=== PATIENT | male | born 1955 | race Caucasian/White ===

== ENCOUNTER 2022-06-23 11:54 | Emergency (ER) | payer OTHER ==
[~2022-06-23] VITALS: Ht 154.9 cm; Wt 61.2 kg
[2022-06-23 12:12] VITALS: BP 130/90
--- NOTE | 2022-06-23 12:22 | NUR ---
PT W/C ASSISTED TO BED 1.
--- NOTE | 2022-06-23 12:30 | NUR ---
PT RECEIVED, CARE ASSUMED. PT BIB CUSTOM DRESSMAKER FOR EVALUATION OF GEN WEAKNESS. PT IN ROOM AWAITING TO BE SEEN BY
[2022-06-23 13:19] LABS: BASOPHILS % (AUTO) 0.3 % (0.0-2.0); EOSINOPHILS % (AUTO) 0.4 % (0.0-4.0); HEMATOCRIT 39.8 % (36-52); HEMOGLOBIN 13.4 g/dL (12.0-18.0); LYMPHOCYTES # (AUTO) 0.9 K/uL (2.0-11.5); LYMPHOCYTES % (AUTO) 13.9 % (20.5-51.1); MEAN CORPUSCULAR HEMOGLOBIN 36 pg (27-31); MEAN CORPUSCULAR HGB CONC 34 g/dL (33-37); MEAN CORPUSCULAR VOLUME 107.6 fL (80-94); MONOCYTES # (AUTO) 0.7 K/uL (0.8-1.0); MONOCYTES % (AUTO) 10.9 % (1.7-9.3); NEUTROPHILS # (AUTO) 4.7 K/uL (1.8-7.7); NEUTROPHILS % (AUTO) 74.5 % (42.2-75.2); PLATELET COUNT (AUTO) 249 K/uL (140-450); RED CELL DISTRIBUTION WIDTH 13.8 % (11.6-13.7); WHITE BLOOD COUNT (AUTO) 6.3 K/uL (4.8-10.8)
[2022-06-23 13:27] LABS: APPEARANCE,URINE CLEAR (CLEAR); BILIRUBIN,URINE NEGATIVE (NEGATIVE); BLOOD, URINE NEGATIVE (NEGATIVE); COLOR,URINE YELLOW (YELLOW); LEUKOCYTE ESTERASE ,URINE NEGATIVE (NEGATIVE); NITRITE, URINE NEGATIVE (NEGATIVE); UGLUCOSE NEGATIVE (NEGATIVE)
[2022-06-23 14:24] LABS: ALBUMIN 3.1 g/dL (3.4-5.0); ANION GAP 13.9 (8-16); CREATININE 1.5 mg/dL (0.6-1.3); POTASSIUM 4.9 mmol/L (3.5-5.1); TOTAL BILIRUBIN 0.4 mg/dL (0.0-1.0)
[2022-06-23] MEDS ORDERED: DOXY50SY PO (17:03)
[2022-06-23] MEDS ORDERED: AMOX75PD60 PO (17:03)
[2022-06-23 17:51] VITALS: BP 131/71
--- NOTE | 2022-06-23 17:55 | NUR ---
Patient discharged with v/s stable. Written and verbal after care instructions given and explained. Patient alert, oriented and verbalized understanding of instructions. with steady gait. All questions addressed prior to discharge. ID band removed. Patient advised to follow up with PMD. Rx of given. Patient educated on indication of medication including possible reaction and side effects. Opportunity to ask questions provided and answered.
== END 2022-06-23 17:51 | disposition home or self-care (01) ==
LOC: MED 11:54
DX: J18.9 Pneumonia, unspecified organism (principal); Z20.822 Contact with and (suspected) exposure to COVID-19; N17.9 Acute kidney failure, unspecified; K21.9 Gastro-esophageal reflux disease without esophagitis; K29.70 Gastritis, unspecified, without bleeding
CPT/HCPCS: 36415; 71045; 74018; 80053; 81003; 85025; 87426; 99284; Q0092

== ENCOUNTER 2022-11-15 10:10 | Inpatient (IN) | payer OTHER ==
[~2022-11-15] VITALS: Ht 154.9 cm; Wt 71.7 kg
[~2022-11-15 10:10] MED LIST: AMOX75PD60 PO; DOXY50SY PO
[2022-11-15 10:20] VITALS: BP 82/49
--- NOTE | 2022-11-15 10:27 | NUR ---
1027 PT TAKEN TO BED 8 VIA WHEELCHAIR BY FAMILY
[2022-11-15] MEDS ORDERED: NACL 0.9% 1,000 ML IV ONE ×2 (10:40→12:10)
[2022-11-15] MEDS ORDERED: KETOROLAC 30 MG/ML VIAL IVP ONE (10:50)
[2022-11-15] MEDS ORDERED: cefTRIAXone 1,000 MG in DEXT 5% MINI-BAG PLUS 50 ML IV ONE (10:50)
[2022-11-15] MEDS ORDERED: NACL 0.9% 2,000 ML IV SCH (10:50)
[2022-11-15] MEDS ORDERED: cefTRIAXone 1,000 MG VIAL ONE (11:07)
[2022-11-15 11:08] LABS: BASOPHILS # (AUTO) 0.1 K/uL (0.00-0.22); BASOPHILS % (AUTO) 0.5 % (0.0-2.0); EOSINOPHILS % (AUTO) 0.2 % (0.0-4.0); HEMATOCRIT 37.2 % (36-52); HEMOGLOBIN 12.6 g/dL (12.0-18.0); LYMPHOCYTES # (AUTO) 0.6 K/uL (2.0-11.5); LYMPHOCYTES % (AUTO) 5.3 % (20.5-51.1); MEAN CORPUSCULAR HEMOGLOBIN 37 pg (27-31); MEAN CORPUSCULAR HGB CONC 34 g/dL (33-37); MEAN CORPUSCULAR VOLUME 109.6 fL (80-94); MONOCYTES # (AUTO) 0.6 K/uL (0.8-1.0); MONOCYTES % (AUTO) 5.6 % (1.7-9.3); NEUTROPHILS # (AUTO) 9.4 K/uL (1.8-7.7); NEUTROPHILS % (AUTO) 88.4 % (42.2-75.2); PLATELET COUNT (AUTO) 187 K/uL (140-450); RED BLOOD CELL COUNT(AUTO) 3.39 MIL/uL (4.20-6.10); RED CELL DISTRIBUTION WIDTH 14.1 % (11.6-13.7); WHITE BLOOD COUNT (AUTO) 10.6 K/uL (4.8-10.8)
[2022-11-15 11:21] LABS: ALBUMIN 2.4 g/dL (3.4-5.0); ANION GAP 12.5 (8-16); CARBON DIOXIDE 25.6 mmol/L (21-32); CREATININE 0.8 mg/dL (0.6-1.3); POTASSIUM 4.1 mmol/L (3.5-5.1); TOTAL BILIRUBIN 0.5 mg/dL (0.0-1.0)
--- NOTE | 2022-11-15 11:40 | NUR ---
PT BIB HAND MODEL, RASH TO LT THIGH SINCE THIS AM. NOTED HYPOTENSIVE, LIPS NOTED DRY, MUCOS MEMBRANE DRY. NO ACUTE DISTRESS.
--- NOTE | 2022-11-15 11:41 | NUR ---
2L NS INFUSING, REMAINS HYPOTENSIVE. DR HOPSON MADE AWARE.
[2022-11-15 12:15] LABS: APPEARANCE,URINE CLEAR (CLEAR); BILIRUBIN,URINE NEGATIVE (NEGATIVE); BLOOD, URINE NEGATIVE (NEGATIVE); COLOR,URINE YELLOW (YELLOW); LEUKOCYTE ESTERASE ,URINE NEGATIVE (NEGATIVE); NITRITE, URINE NEGATIVE (NEGATIVE); UGLUCOSE NEGATIVE (NEGATIVE)
[2022-11-15] MEDS ORDERED: [UNRECOGNIZED DRUG - CODE] PO (13:24)
[2022-11-15] MEDS ORDERED: SYN.1 PO (13:24)
[2022-11-15] MEDS ORDERED: OMEP20EC11 PO (13:24)
[2022-11-15] MEDS ORDERED: LORA10TA19 PO (13:24)
[2022-11-15] MEDS ORDERED: FAMO-90 PO (13:24)
[2022-11-15] MEDS ORDERED: MELO-176 PO (13:24)
[2022-11-15] MEDS ORDERED: METO10TA10 PO (13:24)
[2022-11-15] MEDS ORDERED: NACL 0.9% 500 ML IV ONE (14:25)
[2022-11-15] MEDS ORDERED: ACETAMINOPHEN 325 MG TAB PO PRN (14:45)
[2022-11-15] MEDS ORDERED: ONDANSETRON 4 MG/2 ML VIAL IM/IVP PRN (14:45)
[2022-11-15] MEDS ORDERED: HYDROcodone/APAP 7.5/325 MG 1 TAB PO PRN (14:45)
[2022-11-15] MEDS ORDERED: guaiFENesin DM 200/20 MG-10 ML 10 ML UDC PO PRN (14:45)
[2022-11-15] MEDS ORDERED: DOCUSATE SODIUM 100 MG GELCAP PO PRN (14:45)
[2022-11-15] MEDS ORDERED: POTASSIUM CHLORIDE 10 MEQ TABER PO PRN (14:45)
[2022-11-15 15:01] LABS: MAGNESIUM 1.9 mg/dL (1.8-2.4)
[2022-11-15 15:04] LABS: BARBITURATE, URINE NEGATIVE ng/ml (NEG <=200); BENZODIAZEPINE, URINE NEGATIVE ng/mL (NEG <=200); CANNABINOID, URINE NEGATIVE ng/mL (NEG <=50); COCAINE, URINE NEGATIVE ng/mL (NEG <=300); OPIATE, URINE NEGATIVE ng/mL (NEG <=2000); PHENCYCLIDINE SCREEN,URINE NEGATIVE ng/mL (NEG <=25)
--- NOTE | 2022-11-15 15:16 | NUR ---
DR ARNDT AT BEDSIDE
[2022-11-15 15:17] LABS: PROTHROMBIN TIME 10.9 secs (10.8-13.4)
[2022-11-15] MEDS ORDERED: MIDODRINE 5 MG TAB PO SCH (15:20)
[2022-11-15] MEDS ORDERED: CRUSHER, PILL MC ONE (15:24)
[2022-11-15] MEDS: NACL 0.9% 1,000 ML IV SCH (15:50)
[2022-11-15] MEDS ORDERED: VANCOMYCIN PER PHARMACY MC PRN (16:00)
[2022-11-15] MEDS ORDERED: VANCOMYCIN 1,000 MG in DEXTROSE 5% 250 ML IV SCH (17:00)
[2022-11-15] MEDS ORDERED: VANCOMYCIN 1,000 MG VIAL ONE (17:22)
--- NOTE | 2022-11-15 18:36 | NUR ---
The patient's care was reviewed and supervised by ED Agency Nurse 8, RN, RN.
--- NOTE | 2022-11-15 19:01 | NUR ---
PT TOLERATED DINNER WELL, INSTALLATION ENGINEER FEED PT.
[2022-11-15] MEDS: MIDODRINE 5 MG TAB PO SCH (19:08)
--- NOTE | 2022-11-15 19:31 | NUR ---
CAREGIVER AT BEDSIDE. PT ADMIT TO TELE
--- NOTE | 2022-11-15 19:43 | NUR ---
Patient will be admitted to care of DR ARNDT. Admited to TELE. Will go to [phone]. Belongings list completed. Report to CESAR PRABHAKAR.
[2022-11-15 20:00] VITALS: BP 103/60
--- NOTE | 2022-11-15 20:00 | NUR ---
RECEIVED REPORT FROM ER NURSE FELA FOR CONTINUITY OF CARE. PATIENT IS A&O X0-1 WITH DOWNS SYNDROME. PATIENT IS ON ROOM AIR, BREATHING IS NORMAL WITH SYMMETRICAL RISE AND FALL OF CHEST. IV IS A 20G L HAND; RUNNING NS 60. PATIENT IS AWAKE, SITTING UP IN BED. UTILITY SERVICE WORKER (MARY MOTA, ) IS AT BEDSIDE BED IS IN LOWEST POSITION, WHEELS LOCKED, CALL LIGHT IN PLACE. WILL CONTINUE TO OBSERVE PATIENT.
[2022-11-15] MEDS ORDERED: PIPERACILLIN/TAZOBACTAM 3.375 GM VIAL IV ONE (21:47)
[2022-11-15] MEDS: PIPERACILLIN/TAZOBACTAM 3.375 GM in DEXTROSE 5% 50 ML IV SCH (21:53)
[2022-11-15] MEDS: ZOLPIDEM 5 MG TAB PO PRN (23:24)
--- NOTE | 2022-11-15 23:30 | NUR ---
PATIENT WAS RESTLESS AND UNABLE TO GO TO SLEEP. CHECKED PATIENT'S VITALS AND CHART; AMBIEN WAS APPROPRIATE TO ADMINISTER. ADMINISTERED AMBIEN IN APPLESAUCE. PATIENT WAS ABLE TO SWALLOW WITHOUT ANY ISSUES WITH SWALLOWING. WILL CONTINUE TO OBSERVE PATIENT.
[2022-11-16] VITALS: BP 124/71
[2022-11-16 04:00] VITALS: BP 110/74
[2022-11-16] MEDS ORDERED: PIPERACILLIN/TAZOBACTAM 3.375 GM VIAL IV ONE (05:42)
[2022-11-16] MEDS: PIPERACILLIN/TAZOBACTAM 3.375 GM in DEXTROSE 5% 50 ML IV SCH ×3 (05:45→20:18)
[2022-11-16] MEDS: LEVOTHYROXINE 0.1 MG TAB PO SCH (05:48)
[2022-11-16 05:57] LABS: BASOPHILS % (AUTO) 0.2 % (0.0-2.0); EOSINOPHILS # (AUTO) 0.1 K/uL (0-0.4); EOSINOPHILS % (AUTO) 0.9 % (0.0-4.0); HEMATOCRIT 37.2 % (36-52); HEMOGLOBIN 12.4 g/dL (12.0-18.0); LYMPHOCYTES # (AUTO) 0.7 K/uL (2.0-11.5); MEAN CORPUSCULAR HEMOGLOBIN 37 pg (27-31); MEAN CORPUSCULAR HGB CONC 33 g/dL (33-37); MEAN CORPUSCULAR VOLUME 110.4 fL (80-94); MONOCYTES # (AUTO) 0.8 K/uL (0.8-1.0); MONOCYTES % (AUTO) 5.7 % (1.7-9.3); NEUTROPHILS # (AUTO) 12.9 K/uL (1.8-7.7); NEUTROPHILS % (AUTO) 88.2 % (42.2-75.2); PLATELET COUNT (AUTO) 161 K/uL (140-450); RED BLOOD CELL COUNT(AUTO) 3.37 MIL/uL (4.20-6.10); RED CELL DISTRIBUTION WIDTH 14.1 % (11.6-13.7); WHITE BLOOD COUNT (AUTO) 14.6 K/uL (4.8-10.8)
[2022-11-16] MEDS: MIDODRINE 5 MG TAB PO SCH ×3 (06:08→18:03)
--- NOTE | 2022-11-16 06:44 | NUR ---
PATIENT DID NOT FALL ASLEEP THROUGHOUT THE NIGHT. PATIENT CONTINUED TO STAY AWAKE, SITTING UP. PATIENT REMOVED IV FROM LEFT HAND AND KEPT PULLING ON CATHETER. NOTIFIED MD OF SITUATION AND REQUESTED RESTRAINTS. NEW IV WAS PLACED IN PATIENT IN R HAND, 22G. PATIENT DID NOT HAVE A BM THROUGHOUT THE NIGHT. DR. MORIN AUTHORIZED RESTRAINT ORDER FOR PATIENT. ORDER WAS PUT IN; PATIENT IS CURRENTLY ON RESTRAINTS. WILL CONTINUE TO OBSERVE PATIENT.
[2022-11-16] MEDS: NACL 0.9% 1,000 ML IV SCH (07:25)
--- NOTE | 2022-11-16 07:33 | NUR ---
ENDORSED TO DAY SHIFT NURSE ASHLEY FOR CONTINUITY OF CARE. PATIENT IS STABLE.
--- NOTE | 2022-11-16 07:34 | NUR ---
RECEIVED PT FROM CHIEF QUALITY OFFICER NURSE FOR CONTINUITY OF CARE. PT IS AWAKE SITTING ON BED. AOX0. RESPIRATIONS EVEN AND UNLABORED ON RA. HUGGINS IN PLACE, DRAINING TO GRAVITY. IV ON R HAND 22G INFUSING NS @ 60. ALL SAFETY PRECAUTIONS IN PLACE.
[2022-11-16 08:00] VITALS: BP 102/64
[2022-11-16] MEDS: PANTOPRAZOLE 40 MG TABEC PO SCH (08:11)
[2022-11-16 08:20] LABS: ANION GAP 19.9 (8-16); CARBON DIOXIDE 20.8 mmol/L (21-32); CREATININE 1.4 mg/dL (0.6-1.3); POTASSIUM 4.7 mmol/L (3.5-5.1)
--- NOTE | 2022-11-16 08:47 | NUR ---
PATIENT HAS BEEN SCREENED AND CATEGORIZED HIGH NUTRITION RISK. PATIENT WILL BE SEEN WITHIN 1-2 DAYS OF ADMISSION. 11/15/22-11/20/22 CONSULT REQUEST RECEIVED 11/16/22 FIR POOR PO INTAKE X 3 DAYS, PATIENT WILL BE SEEN WITHIN 1-2 DAYS OF REFERRAL REVIEWED BY LIANA GERBER RD
--- NOTE | 2022-11-16 08:57 | NUR ---
PT. WITH LOW SANTIAGO SCALE AT MODERATE TO HIGH RISK, CONTINUE TO FOLLOW PRESSURE INJURY PREVENTION INTERVENTIONS. -POSITIONING: TURN AND REPOSITION PATIENT Q 2H OR SOONER USE PILLOWS TO KEEP BONY PROMINENCES FROM DIRECT CONTACT WITH SURFACES USE REPOSITIONING WEDGES TO PROVIDE 30-DEGREE ANGLE FOR SIDE LYING POSITIONS OFFLOADING OR FOAM DRESSING TO ALL TUBING TO PREVENT MEDICAL DEVICES RELATED PRESSURE INJURY -RE-EVALUATING AND MANAGING INCONTINENCE MONITOR SKIN CONDITION DURING POSITION CHANGE DO NOT MASSAGE REDNESS, BONY PROMINENCES FREQUENT NOLA-CARE AND PROVIDE BARRIER CREAMS PRN IF SOILING MOISTURE CONTROL BY OFFER BED DYE/URINAL /ABSORBENT PAD TO WICK AND HOLD MOISTURE KEEP SKIN DRY AND PROTECT FROM FRICTION -MANAGE FRICTION/SHEAR/MOBILITY KEEP HOB AT THE LOWEST LEVEL OF ELEVATION NO MORE THAN 30 DEGREE UNLESS OTHERWISE CONTRAINDICATED USE LIFT SHEET OR TRANSFER DEVICE TO MOVE PATIENT AND PREVENT LATERAL SHEER. PROTECT HEELS, ELBOWS BONY PROMINENCES WITH SKIN BERRIES OR FOAM DRESSING IF EXPOSED TO FRICTION OFFLOAD BILATERAL HEELS BY PLACING PILLOWS UNDER CALVES AT ALL TIMES, UNLESS OTHERWISE CONTRAINDICATED -PRESSURE REDISTRIBUTION SURFACE THERAPY AMARI ISOFLEX MATTRESS -NUTRITION: PLEASE FOLLOW RD RECOMMENDATIONS AND OFFER NUTRITION SUPPLEMENTS IF ORDERED. PLEASE CONTACT WOUND CARE NURSE FOR ANY QUESTION AND CHANGE OF WOUND CONDITION.
[2022-11-16] MEDS ORDERED: VANCOMYCIN 750 MG in DEXTROSE 5% 250 ML IV SCH (11:00)
--- NOTE | 2022-11-16 11:52 | NUR ---
DC PLANN[age] YRS OLD MALE PATIENT WAS ADMITTED FROM [facility] WITH A DX OF CELLULITIS AND PNA. PATINT HAS A HX OF DOWN SYNDROME, HYPOTHYROIDISM, GASTRITIS AND HIATAL HERNIA. CXR SHOWED BIBASILAR SUBSEGMENTAL ATELECTASIS/INFILTRATE. VENOUS DOPPLER SHOWED NO DVT AND NO STENOSIS OR OCCLUSION. RAPID COVID TEST NEGATIVE. ON ROOM AIR. ADMINISTERED IVF, IV ABX ZOSYN AND VANCOMYCIN AND CONTINUED HOME MEDS. DC PLAN TO RETURN TO [facility] WHEN STABLE CM TO FOLLOW Addendum: 11/17/22 at 1140 by Kelvin Harden RN DC PLANNING: SEEN BY CARDIO DR IBANEZ , ECHO 60-65%. WBC 13.1. CONTINUED IV ABX ZOSYN AND VANCOMYCIN. DC PLAN TO GO TO [facility] WHEN STABLE. CM TO FOLLOW Addendum: 11/17/22 at 1209 by Kelvin Harden RN DC PLANNING: RECEIVED A CALL FROM GATO GANDHI SPOKE WITH MARY THE REDEYE GUNNER OF THE HOUSE STATED SHE IS GIVING PERMISSION FOR PATIENT TO GO TO ANOTHER [facility] WITH ANA CLARICE BECAUSE OF THE CARE HE NEEDS . PER MARY [facility] [place] IS ONLE LEVEL 2 AND UNABLE TO ACCEPT PATIENT. SHE PROVIDED THE NUMBER FOR ANA [phone] . MISTI ORELLANA IS THE [facility] SOIL CONSERVATIONIST. CM TO FOLLOW Addendum: 11/18/22 at 1226 by PALMER NOVOA CM CALLED SABINA GANDHI 5 TIMES WITH NO RESPONSE AND UNABLE TO LEAVE MESSAGE. WILL FOLLOW UP WHEN I GET IN CONTACT WITH ANA. Addendum: 11/18/22 at 1248 by PALMER NOVOA CM WAS ABLE TO GET A HOLD OF ANA FROM [facility] WHO SAID SHE WAS IN A MEETING AN WILL CALL US LATER. Addendum: 11/18/22 at 6366 by JOSEPH FLORES CM LATE ENTRY LAURA. THE NURSE FROM [facility] CALLED AND SAID THEY CANNOT TAKE THE PATIENT.SOMEONE TESTED POSITIVE FOR COVID SO THE BOARD AND CARE IS CLOSED FOR ADMISSION.ANA, THE REDEYE GUNNER TO CALL [facility] AND SEE IF THE PATIENT CAN GO BACK TO THAT SAME PLACE. KELVIN OUR CM TRIED CALLING [facility] BUT NO RESPONSE. Addendum: 11/19/22 at 5526 by Kelvin Harden RN DC PLANNING: SAMANTHA SPOKE WITH MARY CARDENAS THE ADMIN FOR [facility] STATED UNABLE TO TAKE PATIENT BECAUSE OF HIGH LEVEL OF CARE AND TO CONTACT 'S [facility] SOIL CONSERVATIONIST. SAMANTHA CALLED [facility] [phone] SPOKE WITH MISTI ORELLANA STATED SHE WILL CALL [facility] TO CLARIFY WHAT EXACTLY PT'S NEEDS AND WILL CALL US BACK. CM TO FOLLOW Addendum: 11/19/22 at 1606 by Kelvin Harden RN DC PLANNING: RECEIVED A CALL FROM [facility] STATED PATIENT IS UNDER OUR CUSTODY CAN NOT GO ANY WHERE UNTIL [facility] IS OUT OF [place] UNTIL NOVEMBER 25. CM CALLED [employer] CM SPOKE WITH BRENT REGARDING THE DC PLAN PER BRENT PT CAN GO TO [facility] UNTIL THE [facility] IS READY TO ACCEPT HIM. FAXED TO [facility], ANDRE SCANLON, MISAEL OGDEN AND KUNAL OGDEN. CM TO FOLLOW Addendum: 11/19/22 at 1610 by Kelvin Harden RN DC PLANNING: CALLED ETHAN NOTIFIED HER THAT MISAEL OGDEN ACCEPTED PATIENT SHE STATED TO LET HER KNOW SHE WILL TAKE PATIENT ON NOVEMBER 25 TO [facility]. CM PROVIDE THE ADDRESS AND PHONE NUMBER TO ETHAN MYERS. Addendum: 11/19/22 at 1618 by Kelvin Harden RN DC PLANNING: PATIENT GOT ACCEPTED AT [place] CAN GO TO ROOM B # TO GIVE REPORT [phone] PER BRENT TO USE THE TRANSPORT [facility] AUTH# [id number] PICK UPTIME 7PM . CM TO FOLLOW
[2022-11-16 12:00] VITALS: BP 122/64
--- NOTE | 2022-11-16 12:47 | NUR ---
DC PLANNING ASSESSMENT COMPLETE PLEASE REFER TO ASSESSMENT FOR ADDITIONAL DETAILS PT DEVELOPMENTALLY DELAYED, THEREFORE COLLAT INFO GATHERED FROM MARY MOTA ,[facility] ADMIN. MARY REPORTS PT HAS BEEN RESIDENT OF [facility] SINCE 02/23/1990. PT IS REPORTED TO BE [facility] CONNECTED, [facility] SW- MISTI ORELLANA [phone]. PT IS REPORTED TO HAVE A HALF BROTHER THAT RESIDES IN [place] HOWEVER, IS NOT INVOLVED IN PTS CARE. PTS BROTHER HOWEVER, HAS BEEN NOTIFIED OF PTS ADMISSION TO [facility]. MARY REPORTS SHE TYPICALLY PROVIDES CONSENT WHEN NEEDED HOWEVER, [facility] ALSO PARTICIPATES IN MDM. PT IS REPORTED TO BE NON VERBAL AT FACILITY. MARY REPORTS NO BX'S IN THE HOME HOWEVER, REPORTS PT IS RESISTANT TO TX WHEN IN HOSPITAL OR BEING SEEN BY A PROVIDER. MARY REPORTS PTS LEVEL OF FX HAS CHANGED WITHIN THE LAST FEW MONTHS AND A LEVEL TWO FACILITY CAN NO LONGER ACCOMMODATE HIS NEEDS, PT WILL BE MOVING TO [facility] WHERE THEY CAN PROVIDE LEVEL OF CARE REQUIRED. MARY REPORTS BEING IN TOUCH WITH JALEN LAUGHLIN ADMIN, AND IS WORKING WITH HER SO THAT PT IS DC'D FROM HOSPITAL TO NEW FACILITY. MARY REQUESTING CLINICAL UPDATE, CALL FORWARDED TO PTS NURSE. SW ENDORSED TO . Addendum: 11/16/22 at 1249 by Robin LOYD Amended: Links added. Addendum: 11/19/22 at 1312 by Robin Walter SS OUTREACHED TO MISTI ORELLANA, [facility], TO FOLLOW UP ON PTS DC PLAN. NO ANSWER BY MISTI ORELLANA , MESSAGE WAS LEFT REQUESTING A RETURN PHONE CALL. CONTACT INFO LEFT FOR BOTH [facility] MAYRA AND [facility] SAMANTHA
--- NOTE | 2022-11-16 14:22 | NUR ---
11/16/22 RD INITIAL ASSESSMENT COMPLETED PLEASE REFER TO NUTRITION ASSESSMENT UNDER CARE ACTIVITY FOR ESTIMATED NUTRITIONAL NEEDS. 1. RECOMMEND ADDING ENSURE 1/DAY TO PUREE DIET TOLERATED -PROVIDES 350 KCAL, 20 G PROTEIN DAILY 2. WHEN/IF MEDICALLY APPROPRIATE RECOMMEND MECHANICAL SOFT DIET TOLERATED. 3. MONITOR GI, PO INTAKE, AND LAB VALUES. 4. RD TO FOLLOW-UP 3-5 DAYS, MODERATE RISK REVIEWED BY LIANA GERBER RD
[2022-11-16 16:00] VITALS: BP 102/67
--- NOTE | 2022-11-16 19:11 | NUR ---
ENDORSED PT TO STRUCTURAL ENGINEER NURSE FOR CONTINUITY OF CARE. PT STABLE.
--- NOTE | 2022-11-16 19:25 | NUR ---
RECEIVED PT ASLEEP. NO S/SX OF PAIN NOR DISCOMFORT. NO ACUTE RESPIRATORY DISTRESS. IVF INFUSING WELL ORDERED. SKIN WARM AND DRY TO TOUCH. SAFETY PRECAUTIONS IN PLACE, CALL LIGHT WITHIN REACH.
[2022-11-16 19:56] VITALS: BP 120/63
[2022-11-16] MEDS: ZOLPIDEM 5 MG TAB PO PRN (22:39)
[2022-11-17] VITALS: BP 122/58
[2022-11-17] MEDS: NACL 0.9% 1,000 ML IV SCH ×3 (00:05→17:06)
--- NOTE | 2022-11-17 00:07 | NUR ---
VITAL SIGNS TAKEN AND DOCUMENTED, VS STABLE. NO S/SX OF PAIN NOR DISCOMFORT. MADE COMFORTABLE IN BED. CALL LIGHT WITHIN REACH.
[2022-11-17 04:00] VITALS: BP 99/66
--- NOTE | 2022-11-17 05:00 | NUR ---
AM CARE RENDERED. IV PUMP KEEPS ON ALARMING, UNABLE TO FLUSH IV LINE, CHANGED IV TO THE RIGHT AC GAUGE 20 X 1 ATTEMPT, PT TOLERATED WELL. PREVIOUS IV REMOVED WITH INTACT CANNULA.
[2022-11-17] MEDS: PIPERACILLIN/TAZOBACTAM 3.375 GM in DEXTROSE 5% 50 ML IV SCH ×3 (05:08→21:20)
[2022-11-17] MEDS: LEVOTHYROXINE 0.1 MG TAB PO SCH (05:32)
[2022-11-17 05:37] LABS: BASOPHILS % (AUTO) 0.2 % (0.0-2.0); EOSINOPHILS # (AUTO) 0.1 K/uL (0-0.4); EOSINOPHILS % (AUTO) 0.9 % (0.0-4.0); HEMATOCRIT 35.3 % (36-52); HEMOGLOBIN 11.7 g/dL (12.0-18.0); LYMPHOCYTES # (AUTO) 1.1 K/uL (2.0-11.5); LYMPHOCYTES % (AUTO) 8.3 % (20.5-51.1); MEAN CORPUSCULAR HEMOGLOBIN 37 pg (27-31); MEAN CORPUSCULAR HGB CONC 33 g/dL (33-37); MEAN CORPUSCULAR VOLUME 110.2 fL (80-94); MONOCYTES # (AUTO) 0.8 K/uL (0.8-1.0); MONOCYTES % (AUTO) 6.4 % (1.7-9.3); NEUTROPHILS % (AUTO) 84.2 % (42.2-75.2); PLATELET COUNT (AUTO) 172 K/uL (140-450); RED CELL DISTRIBUTION WIDTH 14.1 % (11.6-13.7); WHITE BLOOD COUNT (AUTO) 13.1 K/uL (4.8-10.8)
[2022-11-17] MEDS: MIDODRINE 5 MG TAB PO SCH ×3 (06:06→18:39)
[2022-11-17 06:15] LABS: ANION GAP 10.9 (8-16); CARBON DIOXIDE 26.6 mmol/L (21-32); CREATININE 1.3 mg/dL (0.6-1.3); POTASSIUM 4.5 mmol/L (3.5-5.1)
--- NOTE | 2022-11-17 06:21 | NUR ---
PATIENT IS AWAKE, SITTING ON THE BED. NO S/SX OF DISTRESS. ALL NEEDS ATTENDED TO. SAFETY PRECAUTIONS MAINTAINED DURING THE SHIFT, CALL LIGHT REMAINS WITHIN REACH.
--- NOTE | 2022-11-17 07:12 | NUR ---
ASSUMED CONTINUITY OF CARE. INITIAL ASSESSMENT DONE. RE-ORIENTED TO EVENTS AND SURROUNDINGS. CALM, QUIET AND COOPERATIVE. KEEP ENVIRONMENT SAFE. FALL PRECAUTION APPLIED. CALL LIGHT WITHIN REACH.
[2022-11-17 08:00] VITALS: BP 116/71
[2022-11-17] MEDS: PANTOPRAZOLE 40 MG TABEC PO SCH (09:01)
[2022-11-17] MEDS: VANCOMYCIN 750 MG in DEXTROSE 5% 250 ML IV SCH (11:12)
[2022-11-17 12:00] VITALS: BP 122/78
[2022-11-17 16:00] VITALS: BP 130/92
--- NOTE | 2022-11-17 19:20 | NUR ---
BEDSIDE REPORT GIVEN TO VICKIE -VANNA. IVF INFUSING WELL. IN STABLE CONDITION.
[2022-11-17 20:00] VITALS: BP 123/73
[2022-11-18] VITALS: BP 144/76
[2022-11-18 04:00] VITALS: BP 136/79
[2022-11-18 05:26] LABS: BASOPHILS % (AUTO) 0.3 % (0.0-2.0); EOSINOPHILS # (AUTO) 0.1 K/uL (0-0.4); EOSINOPHILS % (AUTO) 1.2 % (0.0-4.0); HEMATOCRIT 33.9 % (36-52); HEMOGLOBIN 11.6 g/dL (12.0-18.0); LYMPHOCYTES # (AUTO) 0.9 K/uL (2.0-11.5); LYMPHOCYTES % (AUTO) 8.8 % (20.5-51.1); MEAN CORPUSCULAR HEMOGLOBIN 37 pg (27-31); MEAN CORPUSCULAR HGB CONC 34 g/dL (33-37); MEAN CORPUSCULAR VOLUME 107.8 fL (80-94); MONOCYTES # (AUTO) 0.8 K/uL (0.8-1.0); MONOCYTES % (AUTO) 7.9 % (1.7-9.3); NEUTROPHILS % (AUTO) 81.8 % (42.2-75.2); PLATELET COUNT (AUTO) 194 K/uL (140-450); RED BLOOD CELL COUNT(AUTO) 3.14 MIL/uL (4.20-6.10); RED CELL DISTRIBUTION WIDTH 13.1 % (11.6-13.7); WHITE BLOOD COUNT (AUTO) 9.8 K/uL (4.8-10.8)
[2022-11-18] MEDS: PIPERACILLIN/TAZOBACTAM 3.375 GM in DEXTROSE 5% 50 ML IV SCH ×3 (05:27→20:31)
[2022-11-18] MEDS: MIDODRINE 5 MG TAB PO SCH ×3 (05:27→19:00)
[2022-11-18] MEDS: LEVOTHYROXINE 0.1 MG TAB PO SCH (05:39)
[2022-11-18] MEDS: NACL 0.9% 1,000 ML IV SCH (05:39)
[2022-11-18 06:01] LABS: ANION GAP 10.1 (8-16); CARBON DIOXIDE 26.1 mmol/L (21-32); CREATININE 1.2 mg/dL (0.6-1.3); POTASSIUM 4.2 mmol/L (3.5-5.1)
--- NOTE | 2022-11-18 06:42 | NUR ---
RESTRAINT ORDERED RENEWED FOR @ 0630 FOR 24 HOURS
--- NOTE | 2022-11-18 07:06 | NUR ---
ASSUMED CONTINUITY OF CARE. INITIAL ASSESSMENT DONE. CALM, QUIET, AND NON-COMPLIANT AT TIMES. RE-ORIENTED TO EVENTS AND SURROUNDINGS. FALL PRECAUTION APPLIED. CALL LIGHT WITHIN REACH.
[2022-11-18 08:00] VITALS: BP 124/80
--- NOTE | 2022-11-18 08:55 | NUR ---
DR. PADILLA CAME AND SEEN PT..
[2022-11-18] MEDS: PANTOPRAZOLE 40 MG TABEC PO SCH (09:01)
--- NOTE | 2022-11-18 10:15 | NUR ---
OFF FROM SOFT WRIST RESTRAINTS. NO UNTOWARD BEHAVIOR OBSERVED. REMAINED IN BED. WILL MONITOR FREQUENTLY.
[2022-11-18] MEDS ORDERED: PRO5 PO (10:25)
[2022-11-18] MEDS ORDERED: AMOX-999 PO (10:25)
[2022-11-18] MEDS: VANCOMYCIN 750 MG in DEXTROSE 5% 250 ML IV SCH (10:59)
--- NOTE | 2022-11-18 10:59 | NUR ---
SCHEDULED MEDICATIONS DUE GIVEN. WILL CONTINUE TO MONITOR.
[2022-11-18 12:00] VITALS: BP 114/76
--- NOTE | 2022-11-18 12:52 | NUR ---
SCHEDULED MEDICATIONS DUE GIVEN. WILL CONTINUE TO MONITOR.
[2022-11-18 16:00] VITALS: BP 106/55
--- NOTE | 2022-11-18 19:17 | NUR ---
BEDSIDE REPORT GIVEN TO ILANA ANDRE. IN STABLE CONDITION. IVF INFUSING WELL.
--- NOTE | 2022-11-18 19:20 | NUR ---
RECEIVED PATIENT MINDA IRENE NURSE FOR CONTINUITY OF CARE. PT IS STABLE
[2022-11-18 20:00] VITALS: BP 127/76
[2022-11-19] VITALS: BP 113/51
[2022-11-19] MEDS: NACL 0.9% 1,000 ML IV SCH ×2 (01:49→18:45)
--- NOTE | 2022-11-19 03:00 | NUR ---
PATIENT ASLEEP, NO DISTRESS NOTED
[2022-11-19 04:00] VITALS: BP 121/76
[2022-11-19] MEDS: PIPERACILLIN/TAZOBACTAM 3.375 GM in DEXTROSE 5% 50 ML IV SCH ×3 (04:59→20:09)
[2022-11-19 05:12] LABS: BASOPHILS % (AUTO) 0.3 % (0.0-2.0); EOSINOPHILS # (AUTO) 0.1 K/uL (0-0.4); EOSINOPHILS % (AUTO) 0.8 % (0.0-4.0); HEMATOCRIT 33.3 % (36-52); HEMOGLOBIN 11.4 g/dL (12.0-18.0); LYMPHOCYTES # (AUTO) 0.5 K/uL (2.0-11.5); LYMPHOCYTES % (AUTO) 5.7 % (20.5-51.1); MEAN CORPUSCULAR HEMOGLOBIN 37 pg (27-31); MEAN CORPUSCULAR HGB CONC 34 g/dL (33-37); MONOCYTES # (AUTO) 0.9 K/uL (0.8-1.0); MONOCYTES % (AUTO) 9.2 % (1.7-9.3); NEUTROPHILS # (AUTO) 7.8 K/uL (1.8-7.7); PLATELET COUNT (AUTO) 198 K/uL (140-450); RED BLOOD CELL COUNT(AUTO) 3.11 MIL/uL (4.20-6.10); RED CELL DISTRIBUTION WIDTH 13.3 % (11.6-13.7); WHITE BLOOD COUNT (AUTO) 9.3 K/uL (4.8-10.8)
[2022-11-19 05:29] LABS: ANION GAP 13.4 (8-16); CARBON DIOXIDE 24.3 mmol/L (21-32); POTASSIUM 3.7 mmol/L (3.5-5.1)
--- NOTE | 2022-11-19 05:46 | NUR ---
OFF SOFT WRIST RESTRAINT THROUGHOUT THE SHIFT. PT IS COOPERATIVE, NO UNTOWARD BEHAVIOR OBSERVED
[2022-11-19] MEDS: LEVOTHYROXINE 0.1 MG TAB PO SCH (06:01)
[2022-11-19] MEDS: MIDODRINE 5 MG TAB PO SCH ×3 (06:30→19:00)
--- NOTE | 2022-11-19 07:42 | NUR ---
RECEIVED PT FROM NIGHT RN, PT IS ASLEEP, VISIBLE CHEST RISE AND FALL, ON ROOM AIR, LYING ON THE BED WITH SIDE RAILS UP AND CALL LIGHT WITHIN REACH, IV LINE NOTED ON THE RIGHT AC G. 20 WITH NS INFUSING AT 60ML/HR, PT HAS DOWN SYNDROME, NO SIGN OF DISTRESS NOTED AND WILL CONTINUE TO MONITOR PT.
[2022-11-19 08:00] VITALS: BP 137/76
[2022-11-19] MEDS: PANTOPRAZOLE 40 MG TABEC PO SCH (09:12)
[2022-11-19 12:00] VITALS: BP 109/64
[2022-11-19] MEDS: VANCOMYCIN 750 MG in DEXTROSE 5% 250 ML IV SCH (12:25)
--- NOTE | 2022-11-19 14:13 | NUR ---
11/19/22 RD FOLLOW UP COMPLETED PLEASE REFER TO NUTRITION ASSESSMENT UNDER CARE ACTIVITY FOR ESTIMATED NUTRITIONAL NEEDS. 1. RECOMMEND INCREASING ENSURE ENLIVE TO BID WITH PUREE DIET TOLERATED -ENSURE ENLIVE BID PROVIDES 700 KCAL, 40 G PROTEIN DAILY 2. MONITOR GI SYMPTOMS, PO INTAKE, AND NUTRITION RELATED LAB VALUES 3. RD TO FOLLOW-UP 3-5 DAYS, MODERATE RISK REVIEWED BY LIANA GERBER RD
[2022-11-19 16:00] VITALS: BP 129/72
--- NOTE | 2022-11-19 17:18 | NUR ---
CALLED MISAEL OGDEN AT [phone] AND GAVE REPORT TO RAINER AHUMADA REGARDING PT CARE MANAGEMENT, PT WILL BE GOING TO THE [facility] FOR PO ANTIBIOTIC FOR 7 DAYS AND WILL BE TRANSPORTED BY [facility] AND SENIOR FIRE PROTECTION ENGINEER WILL BE AT 1900.
--- NOTE | 2022-11-19 17:29 | NUR ---
NOTIFIED CAREGIVER MARY OF PT TRANSFER TO [place]
--- NOTE | 2022-11-19 19:25 | NUR ---
ENDORSED PT TO NIGHT RN FOR CONTINUITY OF CARE, PT IS STABLE AT THIS TIME
--- NOTE | 2022-11-19 19:30 | NUR ---
RECEIVED PT INI BED ASLEEP. NO S/SX OF PAIN NOR DISCOMFORT. NO ACUTE RESPIRATORY DISTRESS NOTED. SKIN WARM AND DRY TO TOUCH. IVF INFUSING WELL ORDERED. SAFETY PRECAUTIONS IN PLACE, CALL LIGHT WITHIN REACH, BED ALARM ON.
[2022-11-19 20:00] VITALS: BP 121/62
--- NOTE | 2022-11-19 22:13 | NUR ---
PATIENT DISCHARGED TO [facility], REPORT GIVEN TO STEPHANIE ROD PILER. AM NURSE GAVE REPORT TO FACILITY AND CAREGIVER AWARE OF TRANSFER PER ENDORSEMENT.BELONGINGS GIVEN TO PARAMEDICS. PATIENT STABLE, NOT IN ANY FOR OF DISTRESS.
[2022-11-20] MEDS ORDERED: VANCOMYCIN 1,000 MG in DEXTROSE 5% 250 ML IV SCH (09:00)
== END 2022-11-19 22:15 | DRG 871 ==
LOC: MED 10:10 → MTU 14:54
PROVIDERS: ADMIT Student in an Organized Health Care Education/Training Program; ATTEND Student in an Organized Health Care Education/Training Program
DX: A41.9 Sepsis, unspecified organism (principal); E43 Unspecified severe protein-calorie malnutrition; G93.41 Metabolic encephalopathy; J18.9 Pneumonia, unspecified organism; E87.0 Hyperosmolality and hypernatremia; E87.20 Acidosis, unspecified; L03.115 Cellulitis of right lower limb; E87.8 Other disorders of electrolyte and fluid balance, not elsewhere classified; Z68.29 Body mass index [BMI] 29.0-29.9, adult; E03.9 Hypothyroidism, unspecified; K29.70 Gastritis, unspecified, without bleeding; K44.9 Diaphragmatic hernia without obstruction or gangrene; Z20.822 Contact with and (suspected) exposure to COVID-19
CPT/HCPCS: 36415; 71045; 80048; 80053; 80202; 80305; 81003; 83605; 83735; 83880; 84100; 84484; 85025; 85610; 85730; 87040; 87081; 87086; 93005; 93925; 93970; 96361; 96365; 96375; 97112; 97530; 99285; J0696; J1885; J2543; J3370; J7060; Q0092